=== PATIENT | female | born 1980 | race Caucasian/White ===

== ENCOUNTER 2017-08-04 21:31 | Emergency (ER) | payer OTHER ==
[2017-08-04] MEDS ORDERED: OXYCODONE/APAP 5/325MG PREPACK#4 BTL TAKEHOME ONE (22:42)
--- NOTE | 2017-08-04 22:42 | EDPHY ---
H & P Time Seen by Provider: 08/04/17 21:54 HPI/ROS: CHIEF COMPLAINT: Finger injury HISTORY OF PRESENT ILLNESS: 36-year-old female with history of prior surgery and chronic deformity of the ring finger, right hand, presents after an injury to the sane finger. Patient describes the finger being"jammed"at the PIP joint. She reports great difficulty in extension at the ED IP joint as well as the PIP joint. Finger swollen. No other injury. Otherwise well prior these events. REVIEW OF SYSTEMS: Aside from elements discussed in the HPI, a comprehensive 10-point review of systems was reviewed and is negative. 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 GENERAL APPEARANCE: Uncomfortable, complaining of significant pain and swelling of the finger. FOCUSED EXAM OF right hand: 4th finger held in flexion. Significant swelling around the DI p.m. PIP joint. Ecchymosis is present over the middle phalanx. No open lacerations or abrasions. Patient is unable to extend at the PIP joint. Significant discomfort with passive range of motion. Brisk capillary refill and normal two-point sensation distally. Smoking Status: Never smoked Constitutional: Initial Vital Signs Temperature (C) 36.4 C 08/04/17 21:48 Heart Rate 94 08/04/17 21:48 Respiratory Rate 18 08/04/17 21:48 Blood Pressure 135/98 H 08/04/17 21:48 O2 Sat (%) 96 08/04/17 21:48 O2 Delivery Mode Room Air Allergies/Adverse Reactions: No Known Allergies Allergy (Unverified 08/04/17 21:47) Home Medications: Medication Instructions Recorded Control Implant 08/04/17 FLUoxetine HCL [Fluoxetine HCl] 40 mg PO 08/04/17 traMADol [Ultram 50 mg (*)] 50 mg PO Q4 PRN #20 tab 08/04/17 MDM/Departure - MDM Imaging Results: Imaging Impressions Finger X-Ray 08/04/17 21:52 Impression: 1. Fracture dorsal base right fourth middle phalanx at the PIP joint with flexion and associated soft tissue swelling. Extensor ligamentous injury is also suspected. Imaging: I viewed and interpreted images myself Medications Given: Discontinued Medications Oxycodone/Acetaminophen (Percocet 5/325mg Prepack#4) 1 btl DEBBIE BENAVIDESNOW ONE Stop: 08/04/17 22:43 Last Admin: 08/04/17 22:59 Dose: 1 btl ED Course/Re-evaluation: X-ray demonstrates a chip fracture at the base of the middle phalanx. Patient underwent a digital block to provide some relief. Her finger was splinted in as much extension as the patient could tolerate. I am aware that the patient's pre-existing finger deformity and pathology does not allow full extension at the PIP joint. Patient reports that Tylenol and ibuprofen"do not help her pain". She was given a prepack of oxycodone and a prescription for tramadol to use as needed for pain. She was given referral to Dr. Jana Benitez. She was also given referral to Kalpesh Qureshi, a she was concerned regarding traveled to [place] to see Dr. Benitez. Differential Diagnosis: Differential diagnosis for the patient's injury was considered including but not limited to contusion, abrasion, laceration, fracture, open fracture, or dislocation. - Depart Disposition: Home, Routine, Self-Care Clinical Impression: Finger fracture, right Condition: Good Instructions: Finger Fracture (ED) Additional Instructions: Please keep the splint in place until you are seen by the hand surgeon You been given referral to Dr. Benitez. Contact her office tomorrow to arrange follow-up. You have also been given referral to Dr. Qureshi. He is a hand surgeon here in [place]. Use oxycodone as needed for severe pain. You been given a prescription for tramadol to use as needed for moderate pain Prescriptions: traMADol [Ultram 50 mg (*)] 50 mg PO Q4 PRN #20 tab PRN Reason: pain Referrals: Patient,NotPresent [Primary Care Provider] - As per Instructions Jana Benitez MD [Medical Doctor] - As per Instructions Kalpesh Qureshi MD [Medical Doctor] - As per Instructions
[2017-08-04 23:06] VITALS: BP 124/68; PULSE 82; RESP 16; TEMP 98.6; O2SAT 97
== END 2017-08-04 23:06 | disposition home or self-care (01) ==
LOC: CED 21:31
PROC: 2W3JX1Z Immobilization of Right Finger using Splint (ICD-10-PCS; principal; 2017-08-04)
DX: S62.614A Displaced fracture of proximal phalanx of right ring finger, initial encounter for closed fracture (principal); W23.1XXA Caught, crushed, jammed, or pinched between stationary objects, initial encounter
CPT/HCPCS: 73140-PO; L3925